=== PATIENT | female | born 1990 | race Caucasian/White ===

== ENCOUNTER 2017-07-19 12:22 | Emergency (ER) | payer SELFPAY ==
[~2017-07-19] VITALS: Ht 152.4 cm; Wt 50.5 kg
[2017-07-19 12:51] LABS: HEMATOCRIT 37.5 % (36.0-46.0); MCH 31.1 PG (29.0-34.0); MCHC 32.8 G/DL (30.0-36.0); MCV 94.7 FL (83-99); RBC DIS.WIDTH-CV 11.7 % (11.8-14.6); RBC DIS.WIDTH-SD 40.6 % (39-53); RED BLOOD COUNT 3.96 M/uL (3.80-5.20); WHITE BLOOD COUNT 8.8 K/uL (4.1-10.2)
[2017-07-19 13:01] LABS: CHLORIDE 105 mEq/L (99-109); SODIUM 140 mEq/L (136-147)
[2017-07-19 13:03] LABS: GLUCOSE 102 mg/dL (70-99)
[2017-07-19 13:04] LABS: ANION GAP 11 MEQ/L (2-14)
[2017-07-19 13:05] LABS: TOTAL BILIRUBIN 0.3 mg/dL (0.0-1.0)
[2017-07-19 13:06] LABS: ALKALINE PHOSPHATASE 76 IU/L (3-129)
[2017-07-19 13:08] LABS: GFR ESTIMATE (CALCULATED) > 59 mL/min/; UREA NITROGEN (BUN) 8 mg/dL (9-23)
[2017-07-19 13:16] LABS: QUANTITATIVE HCG < 4.0 MIU/ML
[2017-07-19 13:23] LABS: ADD MIUA? NO; BILIRUBIN NEGATIVE; BLOOD NEGATIVE; GLUCOSE (STRIP) NEGATIVE; KETONES NEGATIVE; LEUKOCYTES NEGATIVE; NITRITE NEGATIVE; PROTEIN (STRIP) NEGATIVE; SPECIFIC GRAVITY 1.008 (1.000-1.030); UROBILINOGEN 0.2 MG/DL (0.2-1.0)
[2017-07-19 13:24] LABS: COLOR LT YELLOW ((YELLOW))
[2017-07-19 13:26] LABS: PLAT.SUFFICIENCY ADEQUATE; PLATELET COUNT 287 K/uL (156-360)
[2017-07-19 13:30] LABS: LIPASE 10 U/L (1.0-51.0)
[2017-07-19] MEDS ORDERED: PRILOSEC20 MG PO (14:03)
[2017-07-19 14:14] LABS: UCUL ADDED? NO
[2017-07-19 14:30] VITALS: BP 112/78
== END 2017-07-19 14:26 | disposition home or self-care (01) ==
LOC: EME 12:22
DX: K21.9 Gastro-esophageal reflux disease without esophagitis (principal); R10.13 Epigastric pain; F17.200 Nicotine dependence, unspecified, uncomplicated
CPT/HCPCS: 76705; 80053; 81003; 83690; 84702; 85027; 99281; 99283

== ENCOUNTER 2018-04-14 09:58 | Emergency (ER) | payer OTHER ==
[~2018-04-14] VITALS: Ht 152.4 cm; Wt 50.6 kg
[~2018-04-14 09:58] MED LIST: PRILOSEC20 MG PO
[2018-04-14 10:06] VITALS: BP 134/66
[2018-04-14] MEDS ORDERED: PEN-VEE K,VEET500 MG PO (11:07)
== END 2018-04-14 11:19 | disposition home or self-care (01) ==
LOC: EME 09:58
DX: J02.0 Streptococcal pharyngitis (principal); H92.09 Otalgia, unspecified ear; F17.200 Nicotine dependence, unspecified, uncomplicated
CPT/HCPCS: 87651 90; 99281; 99284; J1100